=== PATIENT | female | born 1935 | race Caucasian/White ===

== ENCOUNTER 2019-03-27 08:59 | Outpatient (CLI) | payer MEDICARE, OTHER ==
[~2019-03-27 08:59] MED LIST: ASPI-611 PO; ATOR40TA72 PO; FURO20TA4 PO; GABA100C PO; ISOS30TA6 PO; LEVA0.6319 NEB; LEVO25TA7 PO; LOSA25TA96 PO; NITR0.4T SL; PANT-47 PO; POTA20TA10 PO; SENN-93 PO
== END 2019-03-27 23:59 | disposition home or self-care (01) ==
LOC: RAD 08:59
PROVIDERS: ATTEND Family Medicine
DX: M43.13 Spondylolisthesis, cervicothoracic region (principal); M50.30 Other cervical disc degeneration, unspecified cervical region; M25.711 Osteophyte, right shoulder; I10 Essential (primary) hypertension; J44.9 Chronic obstructive pulmonary disease, unspecified; W10.8XXS Fall (on) (from) other stairs and steps, sequela
CPT/HCPCS: 72050; 73030

== ENCOUNTER 2022-03-17 08:16 | Outpatient (CLI) | payer MEDICARE, OTHER ==
[2022-03-17] VITALS (12 sets, daily range): BP systolic 131–158; BP diastolic 55–76
[~2022-03-17 08:16] MED LIST changes: -ISOS30TA6 PO; +ISOS30TA84 PO; +POTA-197 PO; -POTA20TA10 PO
[2022-03-17] MEDS ORDERED: regadenoson 0.4mg/5ml syringe IV ONE (09:30)
[2022-03-17] MEDS ORDERED: aminophylline 500mg/20ml vial ONE (10:43)
[2022-03-17] MEDS ORDERED: aminophylline 500mg/20ml vial IV ONE (10:55)
== END 2022-03-17 23:59 | disposition home or self-care (01) ==
LOC: RAD 08:16
PROVIDERS: ATTEND Internal Medicine Cardiovascular Disease
DX: R07.9 Chest pain, unspecified (principal)
CPT/HCPCS: 78452; 93017; A9500; J0280; J2785

== ENCOUNTER 2022-05-06 10:35 | Emergency (ER) | payer MEDICARE, OTHER ==
[~2022-05-06] VITALS: Ht 157.5 cm; Wt 57.7 kg
[2022-05-06 10:42] VITALS: BP 105/47
--- NOTE | 2022-05-06 10:47 | NUR ---
PT STATES SHE IS NOT ABLE TO VOID AT THIS TIME
[2022-05-06 11:44] LABS: BASOPHILS % (AUTO) 0.3 % (0-1); EOSINOPHILS % (AUTO) 0.2 % (0-6); HEMATOCRIT 35.2 % (35.0-45.0); HEMOGLOBIN 12.4 g/dl (12.0-16.0); LYMPHOCYTES # (AUTO) 0.5 X10'3 (1.1-4.8); LYMPHOCYTES % (AUTO) 4.2 % (21-51); MEAN CORPUSCULAR HEMOGLOBIN 32.2 PG (27.0-31.0); MEAN CORPUSCULAR HGB CONC 35.2 g/dL (33.0-36.5); MEAN CORPUSCULAR VOLUME 91.2 FL (78-98); MEAN PLATELET VOLUME 6.6 FL (7.4-10.4); MONOCYTES # (AUTO) 1.2 X10'3 (0-0.9); MONOCYTES % (AUTO) 9.5 % (2-12); NEUTROPHILS # (AUTO) 11.1 X10'3 (1.8-7.7); NEUTROPHILS % (AUTO) 85.8 % (42-75); PLATELET COUNT 337 X10'3 (140-440); RED BLOOD COUNT 3.85 X10'6 (4.20-5.60); RED CELL DISTRIBUTION WIDTH 13.1 % (11.5-14.5); WHITE BLOOD COUNT 12.9 X10'3 (4.5-11.0)
[2022-05-06 12:01] LABS: ALANINE AMINOTRANSFERASE 30 U/L (12-78); ALBUMIN 3.6 G/DL (3.4-5.0); ALBUMIN/GLOBULIN RATIO 0.8 (1.1-1.5); ALKALINE PHOSPHATASE 106 IU/L (46-116); ANION GAP 11 (8-16); ASPARTATE AMINO TRANSFERASE 18 U/L (10-37); BILIRUBIN,TOTAL 1.6 MG/DL (0.1-1.0); BLOOD UREA NITROGEN 14 MG/DL (7-18); BUN/CREATININE RATIO 11.3 (6.6-38.0); CHLORIDE 94 MMOL/L (99-107); CREATININE 1.24 MG/DL (0.40-0.90); GLUCOSE 102 MG/DL (70-104); LIPASE 67 U/L (73-393); POTASSIUM 3.4 MMOL/L (3.5-5.1); SODIUM 132 MMOL/L (135-145); TOTAL CARBON DIOXIDE 27.1 MMOL/L (24-32); eGFR 41 ML/MIN
[2022-05-06] MEDS ORDERED: iohexol 300mg/ml 100ml inj. ONE (15:19)
[2022-05-06] MEDS ORDERED: HYDR-3965 PO (15:39)
[2022-05-06] MEDS ORDERED: metroNIDAZOLE 500mg tablet PO ONE (16:35)
[2022-05-06] MEDS ORDERED: ciprofloxacin 250mg tablet PO ONE (16:35)
[2022-05-06] MEDS ORDERED: ondansetron 4mg rapidly disintigrating tab PO ONE (16:35)
[2022-05-06] MEDS ORDERED: METR-159 PO (16:36)
[2022-05-06] MEDS ORDERED: CIPR-260 PO (16:36)
[2022-05-06] MEDS ORDERED: ONDA4TAB12 PO (16:36)
== END 2022-05-06 17:26 | disposition home or self-care (01) ==
LOC: ER 10:38
DX: K57.90 Diverticulosis of intestine, part unspecified, without perforation or abscess without bleeding (principal); I11.0 Hypertensive heart disease with heart failure; E78.00 Pure hypercholesterolemia, unspecified; K21.9 Gastro-esophageal reflux disease without esophagitis; E06.9 Thyroiditis, unspecified; G89.29 Other chronic pain; M54.9 Dorsalgia, unspecified; F41.9 Anxiety disorder, unspecified; Z88.0 Allergy status to penicillin; Z88.5 Allergy status to narcotic agent; Z79.899 Other long term (current) drug therapy; Z79.82 Long term (current) use of aspirin
CPT/HCPCS: 36415; 74177; 80053; 83690; 85025; 99285; J3490; Q9967

== ENCOUNTER 2022-05-17 12:23 | Outpatient (CLI) | payer MEDICARE, OTHER ==
[~2022-05-17 12:23] MED LIST changes: +CIPR-260 PO; +METR-159 PO; +ONDA4TAB12 PO
== END 2022-05-17 23:59 | disposition home or self-care (01) ==
LOC: RAD 12:23
PROVIDERS: ATTEND Physician Assistant
DX: G31.89 Other specified degenerative diseases of nervous system (principal); I67.89 Other cerebrovascular disease; J34.1 Cyst and mucocele of nose and nasal sinus; R41.89 Other symptoms and signs involving cognitive functions and awareness
CPT/HCPCS: 70551

== ENCOUNTER 2022-08-03 08:27 | Day surgery (SDC) | payer MEDICARE, OTHER ==
[~2022-08-03] VITALS: Ht 157.5 cm; Wt 50.4 kg
[~2022-08-03 08:27] MED LIST changes: -METR-159 PO
[2022-08-03 08:48] VITALS: BP 101/48
[2022-08-03] MEDS ORDERED: fentaNYL/PF 50MCG/1 ML 2ML syringe ONE (08:48)
[2022-08-03] MEDS ORDERED: MIDAZolam 1 MG/ML 5ML VIAL ONE ×2 (08:48→08:49)
[2022-08-03] MEDS ORDERED: ONDA4TAB12 PO (08:57)
[2022-08-03] MEDS ORDERED: CITA20TA27 PO (08:57)
[2022-08-03 09:45] VITALS: BP 94/48
[2022-08-03 09:55] VITALS: BP 94/45
[2022-08-03 10:05] VITALS: BP 92/46
[2022-08-03 10:15] VITALS: BP 89/39
== END 2022-08-03 10:20 | disposition home or self-care (01) ==
LOC: GI LAB 08:27
PROVIDERS: ATTEND Internal Medicine Gastroenterology
DX: R93.3 Abnormal findings on diagnostic imaging of other parts of digestive tract (principal); K57.30 Diverticulosis of large intestine without perforation or abscess without bleeding; K63.89 Other specified diseases of intestine
CPT/HCPCS: 45331; G0500; J2250; J3010; J7030; Z7512; 88305; 99152; A4620